=== PATIENT | female | born 1965 | race Caucasian/White ===

== ENCOUNTER 2017-08-28 16:32 | Emergency (ER) | payer BC, MEDICAID ==
[2017-08-28] MEDS ORDERED: LORazepam 1 MG Tab PO ONE (19:02)
[2017-08-28] MEDS ORDERED: Losartan 50 MG Tab PO ONE (19:03)
--- NOTE | 2017-08-28 19:18 | EDM.PDOC ---
ED HPI GENERAL MEDICAL PROBLEM - General Chief Complaint: Abdominal Pain Stated Complaint: ILLNESS Time Seen by Provider: 08/28/17 18:15 Source of Information: Reports: Patient History Limitations: Reports: No Limitations - History of Present Illness INITIAL COMMENTS - FREE TEXT/NARRATIVE: Nixon presents to the emergency room today for complaints of chest pain, headache and increased stress with hypertension for the past 2 days with worsening today. She denies fever, change in vision, shortness of breath, palpitations, SOB with activity or while at rest. Susan reports not sleeping well, increased stress, posterior headache at times, mood swings at times, change in bowel patterns with difficulty of excretion. She was initially briefly seen by Dr. Li and lab work ordered. This provider then took over care. No history of bowel issues or concerns. She did have a uterine ablation about two years ago. Middle Abdomen Pain Score (Numeric/FACES): 6 - Related Data Allergies Allergy/AdvReac Type Severity Reaction Status Date / Time codeine Allergy Severe Anaphylactic Verified 08/28/17 17:01 Shock Penicillins Allergy Severe Anaphylactic Verified 08/28/17 17:01 Shock sulfamethoxazole Allergy Cannot Verified 08/28/17 17:01 [From Bactrim] Remember trimethoprim [From Bactrim] Allergy Cannot Verified 08/28/17 17:01 Remember hydromorphone AdvReac Irritabilit Verified 08/28/17 17:01 y Home Meds: Home Meds Diazepam [Diazepam] 5 mg PO ASDIRECTED PRN 12/11/13 [History] Losartan Potassium 100 mg PO BEDTIME 10/27/14 [History] Cyanocobalamin (Vitamin B-12) [Vitamin B-12] 1,000 mcg SL DAILY 06/27/15 [ History] Multivitamin [Poly-Vitamin] 1 tab PO DAILY 04/02/16 [History] Vitamin B Complex 1 dose PO ASDIRECTED 04/02/16 [History] Past Medical History HEENT History: Reports: Impaired Vision Cardiovascular History: Reports: Hypertension Respiratory History: Reports: Other (See Below) Other Respiratory History: lung nodules Gastrointestinal History: Reports: Cholelithiasis 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: Dysfunctional Uterine Bleeding, Endometrial Ablation, , Spontaneous , Therapeutic Musculoskeletal History: Reports: Arthritis, Back Pain, Chronic Other Musculoskeletal History: right knee Neurological History: Reports: Migraines Psychiatric History: Reports: Anxiety, Depression, Panic Attack, Suicide Attempt Endocrine/Metabolic History: Reports: Obesity/BMI 30+ Other Endocrine/Metabolic History: previous hypothyroidism but corrected now and not on any meds - Infectious Disease History Infectious Disease History: Reports: Hepatitis C - Past Surgical History Cardiovascular Surgical History: Reports: None Respiratory Surgical History: Reports: None GI Surgical History: Reports: Bariatric Procedure, Cholecystectomy, EGD Female Surgical History: Reports: Section, Endometrial Ablation, Tubal Ligation Endocrine Surgical History: Reports: None Dermatological Surgical History: Reports: None Social & Family History - Family History Family Medical History: Noncontributory - Tobacco Use Smoking Status *Q: Never Smoker Second Hand Smoke Exposure: No - Caffeine Use Caffeine Use: Reports: Coffee - Alcohol Use Days Per Week of Alcohol Use: 0 Number of Drinks Per Day: 1 Total Drinks Per Week: 0 - Recreational Drug Use Recreational Drug Use: No ED ROS GENERAL - Review of Systems Review Of Systems: See Below Constitutional: Reports: Chills, Diaphoresis. Denies: Fever, Malaise, Weakness , Fatigue, Night Sweats, Weight Gain HEENT: Reports: No Symptoms Respiratory: Denies: Shortness of Breath, Wheezing, Cough, Sputum, Hemoptysis Cardiovascular: Reports: Chest Pain, Blood Pressure Problem, Other (Elevated blood pressure for the past few days. She reports she has been working with Dr. Kowalski toward good blood pressure control and is not currently taking any medication for hypertension. ). Denies: Claudication, Dyspnea on Exertion, Edema, Lightheadedness, Orthopnea, Palpitations, PND, Syncope Endocrine: Denies: Fatigue, High Glucose, Low Glucose, Polydypsia, Polyuria GI/Abdominal: Reports: Abdominal Pain, Diarrhea, Other (She reports feeling of pain and fullness to the abdomen with radiation to her chest. She also reports she sometimes has to push a bulge in her vagina toward her rectum to help with bowel movement. ). Denies: Anorexia, Black Stool, Bloody Stool, Constipation, Decreased Appetite, Difficulty Swallowing, Distension, Hematemesis, Hematochezia , Melena, Nausea, Stool Incontinence, Vomiting : Denies: Frequency, Hematuria, Pain, Urgency, Urinary Retention Musculoskeletal: Denies: Neck Pain, Shoulder Pain, Arm Pain, Back Pain, Muscle Pain Skin: Denies: Diaphoresis, Dryness, Bruising, Rash, Erythema, Wound Neurological: Reports: Headache. Denies: Confusion, Dizziness, Paresthesia, Seizure, Syncope, Tremors, Trouble Speaking, Difficulty Walking, Weakness, Gait Disturbance Psychiatric: Reports: Agitation, Anxiety, Mood Lability. Denies: Hallucinations , Homicidal Ideation, Suicidal Ideation Hematologic/Lymphatic: Reports: No Symptoms Immunologic: Reports: No Symptoms ED EXAM, GENERAL - Physical Exam Exam: See Below Exam Limited By: No Limitations General Appearance: Alert, Mild Distress Eye Exam: Bilateral Eye: EOMI, Normal Inspection, PERRL Ear Exam: Bilateral Ear: Auricle Normal, Canal Normal, TM normal Nose: Normal Inspection Throat/Mouth: Normal Inspection, Normal Lips, Normal Voice, No Airway Compromise Head: Atraumatic, Normocephalic. No: Facial Swelling, Facial Tenderness, Sinus Tenderness Neck: Normal Inspection, Supple, Non-Tender, Full Range of Motion. No: Lymphadenopathy (R), Lymphadenopathy (L), Tender Midline Respiratory/Chest: No Respiratory Distress, Lungs Clear, Normal Breath Sounds, No Accessory Muscle Use, Chest Non-Tender. No: Crackles, Rales, Rhonchi, Wheezing, Accessory Muscle Use, Retractions Cardiovascular: Normal Peripheral Pulses, Regular Rate, Rhythm, No Edema, No Gallop, No Murmur, No Rub Peripheral Pulses: 2+: Radial (L), Radial (R), Dorsalis Pedis (L), Dorsalis Pedis (R) GI/Abdominal: Normal Bowel Sounds, Soft, Non-Tender, No Organomegaly, No Distention, No Abnormal Bruit, No Mass, Tender, Other (Tenderness through out abdomen. ) Back Exam: Normal Inspection, Full Range of Motion. No: CVA Tenderness (R), CVA Tenderness (L) Extremities: Normal Inspection, Normal Range of Motion, Non-Tender, No Pedal Edema, Normal Capillary Refill Neurological: Alert, Oriented, CN II-XII Intact, Normal Cognition, Normal Gait, Normal Reflexes, No Motor/Sensory Deficits Psychiatric: Anxious, Other (Tearful at times, animated) Skin Exam: Warm, Dry, Intact, Normal Color, No Rash Lymphatic: No Adenopathy Course - Vital Signs Last Recorded V/S: Last Vital Signs Temp 37.2 C 08/28/17 16:55 Pulse 83 08/28/17 20:09 Resp 16 08/28/17 20:09 BP 156/102 H 08/28/17 20:46 Pulse Ox 100 08/28/17 20:09 - Orders/Labs/Meds Orders: Active Orders 24 hr Category Date Time Status Abdomen 2V AP Flat Upright [CR] Stat Exams 08/28/17 19:28 Taken Chest 2V [CR] Stat Exams 08/28/17 19:28 Taken Labs: Laboratory Tests 08/28/17 08/28/17 08/28/17 Range/Units 18:06 18:20 18:20 WBC 4.9 (4.5-11.0) K/uL RBC 4.37 (3.30-5.50) M/uL Hgb 13.5 (12.0-15.0) g/dL Hct 39.7 (36.0-48.0) % MCV 91 (80-98) fL MCH 31 (27-31) pg MCHC 34 (32-36) % Plt Count 287 (150-400) K/uL Neut % (Auto) 32 L (36-66) % Lymph % (Auto) 57 H (24-44) % [place] % (Auto) 9 H (2-6) % Eos % (Auto) 2 (2-4) % Baso % (Auto) 1 (0-1) % Puncture Site Lt.radial ABG pH 7.424 (7.350-7.450) ABG pCO2 36.1 (35.0-42.0) mmHg ABG pO2 91.6 (75.0-100.0) mmHg ABG HCO3 23.2 (22.0-26.0) mmol/L ABG Total CO2 20.4 L (21.0-25.0) mmol/L ABG O2 Saturation 96.6 (95.0-98.0) % ABG O2 Content 18.3 (15.0-23.0) %vol ABG Base Excess -0.3 mm/L ABG Hemoglobin 13.6 (12.0-16.0) g/dL ABG Oxyhemoglobin 95.2 % ABG Carboxyhemoglobin 0.2 (0.0-1.6) % ABG Methemoglobin 1.2 % Oscar Test Passed O2 Delivery Device Room air Sodium 144 (140-148) mmol/L Potassium 4.2 (3.6-5.2) mmol/L Chloride 108 (100-108) mmol/L Carbon Dioxide 28 (21-32) mmol/L Anion Gap 7.9 (5.0-14.0) mmol/L BUN 13 (7-18) mg/dL Creatinine 0.6 (0.6-1.0) mg/dL Est Cr Clr Drug Dosing 82.76 mL/min Estimated GFR (MDRD) > 60 (>60) Glucose 83 (74-106) mg/dL Calcium 9.1 (8.5-10.1) mg/dL Total Bilirubin 0.4 (0.2-1.0) mg/dL AST 35 (15-37) U/L ALT 46 (12-78) U/L Alkaline Phosphatase 76 (46-116) U/L Troponin I < 0.017 (0.000-0.056) ng/mL Total Protein 7.3 (6.4-8.2) g/dL Albumin 4.1 (3.4-5.0) g/dL Globulin 3.2 (2.3-3.5) g/dL Albumin/Globulin Ratio 1.3 (1.2-2.2) Urine Color Urine Appearance Urine pH (4.5-8.0) Ur Specific [place] (1.008-1.030) Urine Protein (NEGATIVE) mg/dL Urine Glucose (UA) (NEGATIVE) mg/dL Urine Ketones (NEGATIVE) mg/dL Urine Occult Blood (NEGATIVE) Urine Nitrite (NEGATIVE) Urine Bilirubin (NEGATIVE) Urine Urobilinogen (NORMAL) mg/dL Ur Leukocyte Esterase (NEGATIVE) Urine RBC (0-5) Urine WBC (0-5) Ur Epithelial Cells Amorphous Sediment Urine Bacteria Urine Mucus 08/28/17 Range/Units 19:03 WBC (4.5-11.0) K/uL RBC (3.30-5.50) M/uL Hgb (12.0-15.0) g/dL Hct (36.0-48.0) % MCV (80-98) fL MCH (27-31) pg MCHC (32-36) % Plt Count (150-400) K/uL Neut % (Auto) (36-66) % Lymph % (Auto) (24-44) % Valley % (Auto) (2-6) % Eos % (Auto) (2-4) % Baso % (Auto) (0-1) % Puncture Site ABG pH (7.350-7.450) ABG pCO2 (35.0-42.0) mmHg ABG pO2 (75.0-100.0) mmHg ABG HCO3 (22.0-26.0) mmol/L ABG Total CO2 (21.0-25.0) mmol/L ABG O2 Saturation (95.0-98.0) % ABG O2 Content (15.0-23.0) %vol ABG Base Excess mm/L ABG Hemoglobin (12.0-16.0) g/dL ABG Oxyhemoglobin % ABG Carboxyhemoglobin (0.0-1.6) % ABG Methemoglobin % Oscar Test O2 Delivery Device Sodium (140-148) mmol/L Potassium (3.6-5.2) mmol/L Chloride (100-108) mmol/L Carbon Dioxide (21-32) mmol/L Anion Gap (5.0-14.0) mmol/L BUN (7-18) mg/dL Creatinine (0.6-1.0) mg/dL Est Cr Clr Drug Dosing mL/min Estimated GFR (MDRD) (>60) Glucose (74-106) mg/dL Calcium (8.5-10.1) mg/dL Total Bilirubin (0.2-1.0) mg/dL AST (15-37) U/L ALT (12-78) U/L Alkaline Phosphatase (46-116) U/L Troponin I (0.000-0.056) ng/mL Total Protein (6.4-8.2) g/dL Albumin (3.4-5.0) g/dL Globulin (2.3-3.5) g/dL Albumin/Globulin Ratio (1.2-2.2) Urine Color Yellow Urine Appearance Clear Urine pH 6.0 (4.5-8.0) Ur Specific [place] 1.015 (1.008-1.030) Urine Protein Negative (NEGATIVE) mg/dL Urine Glucose (UA) Normal (NEGATIVE) mg/dL Urine Ketones Negative (NEGATIVE) mg/dL Urine Occult Blood Negative (NEGATIVE) Urine Nitrite Negative (NEGATIVE) Urine Bilirubin Negative (NEGATIVE) Urine Urobilinogen Normal (NORMAL) mg/dL Ur Leukocyte Esterase Negative (NEGATIVE) Urine RBC Not seen (0-5) Urine WBC 0-5 (0-5) Ur Epithelial Cells Rare Amorphous Sediment Not seen Urine Bacteria Few Urine Mucus Not seen Lab work reviewed. We will complete chest/abdominal x-ray. Meds: Medications Discontinued Medications Generic Name Dose Route Start Last Admin Trade Name Caroline PRN Reason Stop Dose Admin Ibuprofen 800 mg 08/28/17 20:24 08/28/17 20:29 Motrin PO 08/28/17 20:25 800 mg ONETIME ONE Administration Lorazepam 1 mg 08/28/17 19:02 08/28/17 19:10 Ativan PO 08/28/17 19:03 1 mg ONETIME ONE Administration Losartan Potassium 50 mg 08/28/17 19:03 08/28/17 19:11 Cozaar PO 08/28/17 19:04 50 mg ONETIME ONE Administration - Radiology Interpretation Free Text/Narrative:: Chest and abdominal x-rays wet read. No acute findings noted. Radiologist read pending. Patient x-rays and lab work reviewed with her, all her questions were answered. - Re-Assessments/Exams Free Text/Narrative Re-Assessment/Exam: 08/28/17 20: No acute findings. Departure - Departure Time of Disposition: 20:29 Disposition: Home, Self-Care 01 Condition: Good Clinical Impression: Anxiety, Constipation, Hypertension Instructions: Hypertension, [id number] Referrals: Javi Kowalski MD [Primary Care Provider] - Forms: ED Department Discharge Additional Instructions: You have been evaluated and treated in the emergency room tonight for hypertension, anxiety and constipation. Your lab work was negative for cardiac concerns or infection. Trop - negative It is in your best interest to take losartan 50mg PO daily. Use lorazepam/ativan 0.5mg to 1mg by mouth as directed for anxiety. You can take docusate sodium 100mg by mouth once or twice a day as needed for constipation. Drink plenty of water and consider use of prunes, prune juice to help with constipation. If you have not had a bowel movement for 3 days you can take one capful of miralax in 8 oz water once to twice a day as needed. Follow up with Dr. Kowalski this week for a recheck and management of hypertension , anxiety. Also suggest possible menopause, rectocele concerns. Return to the emergency room for any worsening, issues or concerns. - My Orders Last 24 Hours: My Active Orders 08/28/17 19:28 Abdomen 2V AP Flat Upright [CR] Stat Chest 2V [CR] Stat - Assessment/Plan Last 24 Hours: My Active Orders 08/28/17 19:28 Abdomen 2V AP Flat Upright [CR] Stat Chest 2V [CR] Stat Assessment:: hypertension, anxiety and constipation. lab work was negative for cardiac concerns or infection. Trop - negative Plan: Patient evaluated and treated in the emergency room tonight for hypertension, anxiety and constipation. Her lab work was negative for cardiac concerns or infection. Trop - negative It is in her best interest to take losartan 50mg PO daily. Use lorazepam/ativan 0.5mg to 1mg by mouth as directed for anxiety. She can take docusate sodium 100mg by mouth once or twice a day as needed for constipation. Drink plenty of water and consider use of prunes, prune juice to help with constipation. If she has not had a bowel movement for 3 days she can take one capful of miralax in 8 oz water once to twice a day as needed. Follow up with Dr. Kowalski this week for a recheck and management of hypertension , anxiety. Also suggest possible menopause, rectocele concerns. Return to the emergency room for any worsening, issues or concerns.
[2017-08-28] MEDS ORDERED: Ibuprofen 800 MG Tab PO ONE (20:24)
[2017-08-28 20:46] VITALS: BP 156/102
--- NOTE | 2017-08-29 09:46 | CR ---
Abdomen 2V AP Flat Upright FINDINGS: Right upper quadrant clips are consistent with a prior cholecystectomy. There is a moderate amount of stool retention within the right colon. The bowel gas pattern is unremarkable. There is no bowel distention. There are no pathologic air-fluid levels. No free air is seen. No pathologic calci fications are demonstrated. IMPRESSION: 1. Moderate colonic stool. 2. No acute findings.
--- NOTE | 2017-08-29 09:48 | CR ---
Chest 2V FINDINGS: The heart and vascular structures are normal in appearance. No infiltrates or effusions are demonstrated. The skeletal structures are unremarkable. IMPRESSION: Negative exam.
== END 2017-08-28 20:46 | disposition home or self-care (01) ==
LOC: JP.ED 16:32
DX: F41.9 Anxiety disorder, unspecified (principal); K59.00 Constipation, unspecified; I10 Essential (primary) hypertension; F32.9 Major depressive disorder, single episode, unspecified; Z79.899 Other long term (current) drug therapy; Z88.1 Allergy status to other antibiotic agents; Z88.5 Allergy status to narcotic agent; Z88.2 Allergy status to sulfonamides; Z88.0 Allergy status to penicillin; Z88.8 Allergy status to other drugs, medicaments and biological substances
CPT/HCPCS: 36415; 36600; 71046; 74019; 80053; 81001; 82803; 84484; 85025; 99285; A9270

== ENCOUNTER 2017-09-22 18:51 | Emergency (ER) | payer BC ==
[2017-09-22] MEDS ORDERED: Metoclopramide 10 MG/2 ML SDV IVPUSH ONE (19:38)
[2017-09-22] MEDS ORDERED: Lactated Ringers 1,000 ML IV SCH (19:45)
--- NOTE | 2017-09-22 19:45 | EDM.PDOC ---
ED HPI GENERAL MEDICAL PROBLEM - General Chief Complaint: Abdominal Pain Stated Complaint: STOMACH PAINS/SORE THROAT Time Seen by Provider: 09/22/17 19:30 Source of Information: Reports: Patient, Old Records History Limitations: Reports: No Limitations - History of Present Illness INITIAL COMMENTS - FREE TEXT/NARRATIVE: 52 yo female s/p gastric bypass presents with 2 days of diarrhea and onset this morning of epigastric pain and nausea/GERD sx's. Hasn't normally had reflux sx' s since her surgery. Is not aware of a fever. No blood in her stools. No urinary sx's. Has a mild sore throat since the GERD sx's. Onset: Gradual Onset Date: 09/21/17 Duration: Day(s): (1.5 days) Location: Reports: Abdomen Quality: Reports: Burning (in epigastric area.) Severity: Moderate Improves with: Reports: None Worsens with: Reports: None Associated Symptoms: Reports: Nausea/Vomiting (no vomting), Other (diarrhea). 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) epigastric Pain Score (Numeric/FACES): 6 - Related Data Allergies Allergy/AdvReac Type Severity Reaction Status Date / Time codeine Allergy Severe Anaphylactic Verified 09/22/17 19:09 Shock Penicillins Allergy Severe Anaphylactic Verified 09/22/17 19:09 Shock sulfamethoxazole Allergy Cannot Verified 09/22/17 19:09 [From Bactrim] Remember trimethoprim [From Bactrim] Allergy Cannot Verified 09/22/17 19:09 Remember hydromorphone AdvReac Irritabilit Verified 09/22/17 19:09 y Home Meds: Home Meds Diazepam 5 mg PO ASDIRECTED PRN 12/11/13 [History] Losartan Potassium 100 mg PO BEDTIME 10/27/14 [History] Cyanocobalamin (Vitamin B-12) [Vitamin B-12] 1,000 mcg SL DAILY 06/27/15 [ History] Multivitamin [Poly-Vitamin] 1 tab PO DAILY 04/02/16 [History] Vitamin B Complex 1 dose PO ASDIRECTED 04/02/16 [History] PARoxetine HCl [Paroxetine HCl] 30 mg PO DAILY 09/22/17 [History] hydrOXYzine Pamoate [Hydroxyzine Pamoate] 25 mg PO BEDTIME 09/22/17 [History] Past Medical History HEENT History: Reports: Impaired Vision Cardiovascular History: Reports: Hypertension Respiratory History: Reports: Other (See Below) Other Respiratory History: lung nodules Gastrointestinal History: Reports: Cholelithiasis, GERD 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: Dysfunctional Uterine Bleeding, Endometrial Ablation, , Spontaneous , Therapeutic Musculoskeletal History: Reports: Arthritis, Back Pain, Chronic Other Musculoskeletal History: right knee Neurological History: Reports: Concussion, Head Trauma, Migraines Psychiatric History: Reports: Anxiety, Depression, Panic Attack, Psych Hospitalization(s), Suicide Attempt Endocrine/Metabolic History: Reports: Other (See Below) Other Endocrine/Metabolic History: previous hypothyroidism but corrected now and not on any meds Hematologic History: Reports: B12 Deficiency, Folic Acid - Infectious Disease History Infectious Disease History: Reports: Shingles - Past Surgical History Cardiovascular Surgical History: Reports: None Respiratory Surgical History: Reports: None GI Surgical History: Reports: Bariatric Procedure, Cholecystectomy, EGD Female Surgical History: Reports: Section, Endometrial Ablation, Tubal Ligation Endocrine Surgical History: Reports: None Dermatological Surgical History: Reports: None Social & Family History - Family History Family Medical History: Noncontributory - Tobacco Use Smoking Status *Q: Never Smoker Second Hand Smoke Exposure: No - Caffeine Use Caffeine Use: Reports: Coffee - Alcohol Use Days Per Week of Alcohol Use: 0 Number of Drinks Per Day: 1 Total Drinks Per Week: 0 - Recreational Drug Use Recreational Drug Use: No ED ROS GENERAL - Review of Systems Review Of Systems: See Below Constitutional: Reports: No Symptoms HEENT: Reports: No Symptoms Respiratory: Reports: No Symptoms Cardiovascular: Reports: No Symptoms Endocrine: Reports: No Symptoms GI/Abdominal: Reports: Abdominal Pain, Anorexia, Diarrhea, Decreased Appetite, Distension (now resolved, was distended yesterday.), Nausea. Denies: Black Stool, Bloody Stool, Hematemesis, Hematochezia, Melena, Vomiting : Reports: No Symptoms Musculoskeletal: Reports: No Symptoms Skin: Reports: No Symptoms Neurological: Reports: No Symptoms Psychiatric: Reports: No Symptoms ED EXAM, GI/ABD - Physical Exam Exam: See Below Exam Limited By: No Limitations General Appearance: Alert, WD/WN, No Apparent Distress Eyes: Bilateral: Normal Appearance Ears: Normal External Exam, Normal Canal, Hearing Grossly Normal, Normal TMs Nose: Normal Inspection, Normal Mucosa, No Blood Throat/Mouth: Normal Inspection, Normal Lips, Normal Oropharynx, Normal Voice, No Airway Compromise Head: Atraumatic, Normocephalic Neck: Normal Inspection, Supple, Non-Tender Respiratory/Chest: No Respiratory Distress, Lungs Clear, Normal Breath Sounds, No Accessory Muscle Use Cardiovascular: Regular Rate, Rhythm, No Edema GI/Abdominal Exam: Normal Bowel Sounds, Soft, No Distention, Tender (epigastrium ) Back Exam: Normal Inspection. No: CVA Tenderness (R) Extremities: Normal Inspection, Normal Range of Motion, Non-Tender, No Pedal Edema Neurological: Alert, Oriented, CN II-XII Intact, Normal Cognition, No Motor/ Sensory Deficits Psychiatric: Normal Affect, Normal Mood Skin Exam: Warm, Dry, Intact, Normal Color, No Rash Lymphatic: No Adenopathy Course - Vital Signs Text/Narrative:: Feeling much better after Reglan and Maalox, will try giving some oral food/ liquid and see how she feels after that. Will finish her liter of LR also. Tolerated water and crackers without a recurrence of her sx's. Last Recorded V/S: Last Vital Signs Temp 36.5 C 09/22/17 19:15 Pulse 67 09/22/17 19:15 Resp 20 09/22/17 19:15 BP 152/95 H 09/22/17 19:15 Pulse Ox 93 L 09/22/17 19:15 - Orders/Labs/Meds Orders: Active Orders 24 hr Category Date Time Status Lactated Ringers [Ringers, Lactated] 1,000 ml Med 09/22/17 19:45 Active IV ASDIRECTED Medication Orders Lactated Ringer's (Ringers, Lactated) 1,000 mls @ 500 mls/hr IV ASDIRECTED PRIYA Last Admin: 09/22/17 20:17 Dose: 500 mls/hr Labs: Laboratory Tests 09/22/17 09/22/17 Range/Units 19:40 19:40 WBC 7.0 (4.5-11.0) K/uL RBC 4.12 (3.30-5.50) M/uL Hgb 12.6 (12.0-15.0) g/dL Hct 37.6 (36.0-48.0) % MCV 91 (80-98) fL MCH 31 (27-31) pg MCHC 34 (32-36) % Plt Count 262 (150-400) K/uL Sodium 146 (140-148) mmol/L Potassium 4.2 (3.6-5.2) mmol/L Chloride 109 H (100-108) mmol/L Carbon Dioxide 29 (21-32) mmol/L Anion Gap 12.2 (5.0-14.0) mmol/L BUN 13 (7-18) mg/dL Creatinine 0.6 (0.6-1.0) mg/dL Est Cr Clr Drug Dosing 82.76 mL/min Estimated GFR (MDRD) > 60 (>60) Glucose 93 (74-106) mg/dL Calcium 8.2 L (8.5-10.1) mg/dL Total Bilirubin 0.4 (0.2-1.0) mg/dL AST 40 H (15-37) U/L ALT 52 (12-78) U/L Alkaline Phosphatase 71 (46-116) U/L Total Protein 6.6 (6.4-8.2) g/dL Albumin 3.7 (3.4-5.0) g/dL Globulin 2.9 (2.3-3.5) g/dL Albumin/Globulin Ratio 1.3 (1.2-2.2) Lipase 131 (73-393) U/L Meds: Medications Generic Name Dose Route Start Last Admin Trade Name Caroline PRN Reason Stop Dose Admin Lactated Ringer's 1,000 mls @ 500 mls/hr 09/22/17 19:45 09/22/17 20:17 Ringers, Lactated IV 500 mls/hr ASDIRECTED PIRYA Administration Discontinued Medications Generic Name Dose Route Start Last Admin Trade Name Caroline PRN Reason Stop Dose Admin Al Hydroxide/Mg Hydroxide 30 ml 09/22/17 20:05 09/22/17 20:16 Mag-Al Plus PO 09/22/17 20:06 30 ml ONETIME ONE Administration Metoclopramide HCl 10 mg 09/22/17 19:38 09/22/17 20:17 Reglan IVPUSH 09/22/17 19:39 10 mg ONETIME ONE Administration Departure - Departure Time of Disposition: 21:50 Disposition: Home, Self-Care 01 Condition: Good Clinical Impression: Epigastric pain Diarrhea Qualifiers: Diarrhea type: unspecified type Qualified Code(s): R19.7 - Diarrhea, unspecified - Discharge Information Referrals: Javi Kowalski MD [Primary Care Provider] - Forms: ED Department Discharge - My Orders Last 24 Hours: My Active Orders 09/22/17 19:45 Lactated Ringers [Ringers, Lactated] 1,000 ml IV ASDIRECTED - Assessment/Plan Last 24 Hours: My Active Orders 09/22/17 19:45 Lactated Ringers [Ringers, Lactated] 1,000 ml IV ASDIRECTED
[2017-09-22] MEDS ORDERED: Aluminum Hydroxide/Magnesium Hydroxide/Simethicone Susp 30 ML Cup PO ONE (20:05)
[2017-09-22 21:48] VITALS: BP 100/62
== END 2017-09-22 22:04 | disposition home or self-care (01) ==
LOC: JP.ED 18:51
DX: R10.13 Epigastric pain (principal); R19.7 Diarrhea, unspecified; I10 Essential (primary) hypertension; Z88.5 Allergy status to narcotic agent; Z88.0 Allergy status to penicillin; Z88.2 Allergy status to sulfonamides; Z79.899 Other long term (current) drug therapy
CPT/HCPCS: 36415; 80053; 83690; 85027; 99284; A9270; J2765; J7120

== ENCOUNTER 2017-12-01 08:04 | Emergency (ER) | payer BC ==
[2017-12-01] MEDS ORDERED: LORazepam 2 MG/ML SDV IM ONE (08:15)
[2017-12-01 09:44] VITALS: BP 91/57
== END 2017-12-01 08:25 | disposition left against medical advice (07) ==
LOC: JP.ED 08:04
DX: Z53.20 Procedure and treatment not carried out because of patient's decision for unspecified reasons (principal)

== ENCOUNTER 2018-06-14 11:57 | Emergency (ER) | payer SELFPAY ==
[2018-06-14 12:36] VITALS: BP 165/115
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
== END 2018-06-14 12:55 | disposition home or self-care (01) ==
LOC: JP.ED 11:57
DX: F32.9 Major depressive disorder, single episode, unspecified (principal); F41.9 Anxiety disorder, unspecified; I10 Essential (primary) hypertension; Z88.5 Allergy status to narcotic agent; Z88.0 Allergy status to penicillin; Z88.2 Allergy status to sulfonamides; Z79.899 Other long term (current) drug therapy; Z88.1 Allergy status to other antibiotic agents
CPT/HCPCS: 99283; 99284

== ENCOUNTER 2019-03-25 19:14 | Emergency (ER) | payer MEDICAID ==
[2019-03-25 19:18] VITALS: BP 187/138; PULSE 88
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
== END 2019-03-25 19:45 ==
LOC: JP.ED 19:14
DX: S00.03XA Contusion of scalp, initial encounter (principal); F41.9 Anxiety disorder, unspecified; I10 Essential (primary) hypertension; Z88.0 Allergy status to penicillin; Z88.2 Allergy status to sulfonamides; Z88.5 Allergy status to narcotic agent; Z79.899 Other long term (current) drug therapy; Y04.0XXA Assault by unarmed brawl or fight, initial encounter
CPT/HCPCS: 99284

== ENCOUNTER 2019-08-30 05:23 | Emergency (ER) | payer MEDICAID ==
[2019-08-30 05:32] VITALS: BP 157/111; PULSE 78
[2019-08-30] MEDS ORDERED: Acetaminophen 325 MG Tab PO ONE (05:58)
[2019-08-30] MEDS ORDERED: Ketorolac 30 MG/ML SDV IM ONE (05:58)
--- NOTE | 2019-08-30 05:58 | EDM.PDOC ---
ED HPI GENERAL MEDICAL PROBLEM - General Chief Complaint: Back Pain or Injury Stated Complaint: LOWER BACK PAIN Time Seen by Provider: 08/30/19 05:49 Source of Information: Reports: Patient History Limitations: Reports: No Limitations - History of Present Illness INITIAL COMMENTS - FREE TEXT/NARRATIVE: This is a 54-year-old woman with chronic low back pain who presents with concerns of back pain. She reports that she was working at her job at the [employer], she was inside a freezer for a couple hours which she thinks is exacerbating her low back pain symptoms. She was also sitting during this time which sometimes bothers her back as well. She reports a dull pain in her lower back. There is no radiation into the legs. There is no weakness in the extremities. No saddle anesthesia. No incontinence. No fevers or chills. No IV drug use. No trauma. She has had similar pain like this in the past just not for some time. Lower Back Pain Score (Numeric/FACES): 10 - Related Data Allergies Allergy/AdvReac Type Severity Reaction Status Date / Time codeine Allergy Severe Anaphylactic Verified 03/25/19 19:21 Shock Penicillins Allergy Severe Anaphylactic Verified 03/25/19 19:21 Shock sulfamethoxazole Allergy Cannot Verified 03/25/19 19:21 [From Bactrim] Remember trimethoprim [From Bactrim] Allergy Cannot Verified 03/25/19 19:21 Remember fentanyl AdvReac Agitation Verified 08/30/19 05:34 hydromorphone AdvReac Irritabilit Verified 03/25/19 19:21 y Home Meds: Home Meds diazePAM [Diazepam] 5 mg PO ASDIRECTED PRN 12/11/13 [History] Cyanocobalamin (Vitamin B-12) [Vitamin B-12] 1,000 mcg SL DAILY 06/27/15 [ History] Multivitamin [Poly-Vitamin] 1 tab PO DAILY 04/02/16 [History] Vitamin B Complex 1 dose PO ASDIRECTED 04/02/16 [History] risperiDONE 1 tab PO DAILY 06/14/18 [History] Losartan Potassium [Cozaar] 50 mg PO DAILY 03/25/19 [History] Past Medical History HEENT History: Reports: Impaired Vision Cardiovascular History: Reports: Hypertension Respiratory History: Reports: Other (See Below) Other Respiratory History: lung nodules Gastrointestinal History: Reports: Cholelithiasis, GERD Genitourinary History: Reports: None 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 left arm pain Neurological History: Reports: Concussion, Head Trauma, Migraines Psychiatric History: Reports: Anxiety, Depression, Panic Attack, Psych Hospitalization(s), Suicide Attempt Endocrine/Metabolic History: Reports: Other (See Below) Other Endocrine/Metabolic History: previous hypothyroidism but corrected now and not on any meds Hematologic History: Reports: B12 Deficiency, Folic Acid Immunologic History: Reports: None Oncologic (Cancer) History: Reports: None - Infectious Disease History Infectious Disease History: Reports: C-Difficile, Measles - Past Surgical History Head Surgeries/Procedures: Reports: None Cardiovascular Surgical History: Reports: None Respiratory Surgical History: Reports: None GI Surgical History: Reports: Bariatric Procedure, Cholecystectomy, EGD Female Surgical History: Reports: Section, Endometrial Ablation, Tubal Ligation Endocrine Surgical History: Reports: None Musculoskeletal Surgical History: Reports: None Dermatological Surgical History: Reports: None Social & Family History - Family History Family Medical History: Noncontributory - Tobacco Use Smoking Status *Q: Never Smoker - Caffeine Use Caffeine Use: Reports: None - Recreational Drug Use Recreational Drug Use: No ED ROS GENERAL - Review of Systems Review Of Systems: See Below Constitutional: Reports: No Symptoms HEENT: Reports: No Symptoms Respiratory: Reports: No Symptoms Cardiovascular: Reports: No Symptoms Endocrine: Reports: No Symptoms GI/Abdominal: Reports: No Symptoms : Reports: No Symptoms Musculoskeletal: Reports: Back Pain Skin: Reports: No Symptoms Neurological: Reports: No Symptoms Psychiatric: Reports: No Symptoms Hematologic/Lymphatic: Reports: No Symptoms Immunologic: Reports: No Symptoms ED EXAM,LOWER BACK PAIN/INJURY - Physical Exam Exam: See Below Exam Limited By: No Limitations General Appearance: Alert, No Apparent Distress Ears: Normal External Exam Throat/Mouth: Normal Inspection Head: Atraumatic, Normocephalic Neck: Normal Inspection Respiratory/Chest: No Respiratory Distress Cardiovascular: Regular Rate, Rhythm GI/Abdominal: Soft, Non-Tender Back Exam: Normal Inspection, Other (mild low lumber paraspinal tenderness) Extremities: Normal Inspection Neurological: Alert, Normal Mood/Affect, Other (low extremity strength 5/5 and symmetric, stable and fluid gait) Psychiatric: Normal Affect, Normal Mood Skin Exam: Warm, Dry Course - Vital Signs Last Recorded V/S: Last Vital Signs Temp 36.3 C 08/30/19 05:28 Pulse 78 08/30/19 05:28 Resp 18 08/30/19 05:28 BP 157/111 H 08/30/19 05:28 Pulse Ox 99 08/30/19 05:28 - Orders/Labs/Meds Meds: Medications Discontinued Medications Generic Name Dose Route Start Last Admin Trade Name Caroline PRN Reason Stop Dose Admin Acetaminophen 650 mg 08/30/19 05:58 Tylenol PO 08/30/19 05:59 NOW ONE Ketorolac Tromethamine 30 mg 08/30/19 05:58 Toradol IM 08/30/19 05:59 ONETIME ONE - Re-Assessments/Exams Free Text/Narrative Re-Assessment/Exam: 54-year-old presents with acute on chronic low back pain. No red flag symptoms. She has neuro intact. Sounds to been triggered by inactivity/sitting, though she also contributes somewhat to the cold environment in which she works. No role for imaging. Treating with toradol and tylenol Instructed on supportive cares and NSAID use Work note provided PCP follow up prn Discharged 08/30/19 06:07 Departure - Departure Time of Disposition: 06:02 Disposition: Home, Self-Care 01 Clinical Impression: Low back pain Qualifiers: Chronicity: acute Back pain laterality: midline Sciatica presence: without sciatica Qualified Code(s): M54.5 - Low back pain - Discharge Information Instructions: Acute Back Pain, Adult Referrals: Javi Kowalski MD [Primary Care Provider] - Forms: ED Department Discharge Additional Instructions: We did not identify any emergent cause for your symptoms. Please take Tylenol and ibuprofen for your low back pain. You can also apply a hot pad. Please see your primary doctor if you are having persistent difficulties. Sepsis Event Note - Evaluation Sepsis Screening Result: No Definite Risk - Focused Exam Vital Signs: Vital Signs Temp Pulse Resp BP Pulse Ox 08/30/19 05:28 36.3 C 78 18 157/111 H 99 Date Exam was Performed: 08/30/19 Time Exam was Performed: 06:03
== END 2019-08-30 06:18 | disposition home or self-care (01) ==
LOC: JP.ED 05:23
DX: M54.5 Low back pain (principal); I10 Essential (primary) hypertension; M19.90 Unspecified osteoarthritis, unspecified site; F32.9 Major depressive disorder, single episode, unspecified; F41.0 Panic disorder [episodic paroxysmal anxiety]; Z88.5 Allergy status to narcotic agent; Z88.0 Allergy status to penicillin; Z88.2 Allergy status to sulfonamides; Z88.8 Allergy status to other drugs, medicaments and biological substances; Z79.899 Other long term (current) drug therapy
CPT/HCPCS: 96372; 99283; A9270-GY; J1885

== ENCOUNTER 2019-11-03 09:44 | Emergency (ER) | payer BC, MEDICAID | END 2019-11-03 10:57 | disposition left against medical advice (07) | LOC: JP.ED 09:44 | DX: Z53.21 Procedure and treatment not carried out due to patient leaving prior to being seen by health care provider (principal) ==

== ENCOUNTER 2019-12-29 18:34 | Emergency (ER) | payer BC, MEDICAID ==
[2019-12-29 18:49] VITALS: BP 139/95; PULSE 84
[2019-12-29] MEDS ORDERED: hydrOXYzine HCl 25 MG Tab PO ONE (19:30)
--- NOTE | 2019-12-29 19:35 | EDM.PDOC ---
ED HPI GENERAL MEDICAL PROBLEM - General Chief Complaint: Skin Complaint Stated Complaint: ITCHING, POSS REACTION TO MED Time Seen by Provider: 12/29/19 19:10 Source of Information: Reports: Patient, RN Notes Reviewed History Limitations: Reports: No Limitations - History of Present Illness INITIAL COMMENTS - FREE TEXT/NARRATIVE: Nixon presents today for complaints of itching bug bites to her bilateral legs and scalp for the past 24 hours. She reports she is currently taking cephalexin for a bladder infection and has taken three dose of antibiotic. She tamanna fever, chills, no difficulty breathing, SOB, swelling of lips, mouth. She denies any other issues or concerns. back/joints Pain Score (Numeric/FACES): 5 - Related Data Allergies Allergy/AdvReac Type Severity Reaction Status Date / Time codeine Allergy Severe Anaphylactic Verified 12/29/19 18:53 Shock Penicillins Allergy Severe Anaphylactic Verified 12/29/19 18:53 Shock sulfamethoxazole Allergy Cannot Verified 12/29/19 18:53 [From Bactrim] Remember trimethoprim [From Bactrim] Allergy Cannot Verified 12/29/19 18:53 Remember fentanyl AdvReac Agitation Verified 12/29/19 18:53 hydromorphone AdvReac Irritabilit Verified 12/29/19 18:53 y Home Meds: Home Meds diazePAM [Diazepam] 5 mg PO ASDIRECTED PRN 12/11/13 [History] Cyanocobalamin (Vitamin B-12) [Vitamin B-12] 1,000 mcg SL DAILY 06/27/15 [History] Multivitamin [Poly-Vitamin] 1 tab PO DAILY 04/02/16 [History] Vitamin B Complex 1 dose PO ASDIRECTED 04/02/16 [History] risperiDONE 1 tab PO DAILY 06/14/18 [History] Losartan Potassium [Cozaar] 50 mg PO DAILY 03/25/19 [History] Triamcinolone Acetonide [Triamcinolone Acetonide 0.1% Crm] 1 applic TOP BID PRN 12/29/19 [History] cephALEXin [Cephalexin] 1 tab PO BID 12/29/19 [History] Past Medical History HEENT History: Reports: Impaired Vision Cardiovascular History: Reports: Hypertension Respiratory History: Reports: Other (See Below) Other Respiratory History: lung nodules Gastrointestinal History: Reports: Cholelithiasis, GERD Genitourinary History: Reports: None 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 left arm pain Neurological History: Reports: Concussion, Head Trauma, Migraines Psychiatric History: Reports: Anxiety, Depression, Panic Attack, Psych Hospitalization(s), Suicide Attempt Endocrine/Metabolic History: Reports: Other (See Below) Other Endocrine/Metabolic History: previous hypothyroidism but corrected now and not on any meds Hematologic History: Reports: B12 Deficiency, Folic Acid Immunologic History: Reports: None Oncologic (Cancer) History: Reports: None - Infectious Disease History Infectious Disease History: Reports: C-Difficile, Measles - Past Surgical History Head Surgeries/Procedures: Reports: None Cardiovascular Surgical History: Reports: None Respiratory Surgical History: Reports: None GI Surgical History: Reports: Bariatric Procedure, Cholecystectomy, EGD, Other (See Below) Other GI Surgeries/Procedures: abdominoplasty Female Surgical History: Reports: Section, Endometrial Ablation, Tubal Ligation Endocrine Surgical History: Reports: None Musculoskeletal Surgical History: Reports: None Dermatological Surgical History: Reports: None Social & Family History - Family History Family Medical History: Noncontributory - Tobacco Use Smoking Status *Q: Never Smoker - Caffeine Use Caffeine Use: Reports: None - Recreational Drug Use Recreational Drug Use: No ED ROS GENERAL - Review of Systems Review Of Systems: See Below Constitutional: Reports: No Symptoms HEENT: Reports: No Symptoms Respiratory: Reports: No Symptoms Cardiovascular: Reports: No Symptoms Endocrine: Reports: No Symptoms GI/Abdominal: Reports: No Symptoms : Reports: No Symptoms Musculoskeletal: Reports: No Symptoms Skin: Reports: Pruritis, Other (insect bites to bilateral legs and scalp) Neurological: Reports: No Symptoms Psychiatric: Reports: No Symptoms Hematologic/Lymphatic: Reports: No Symptoms Immunologic: Reports: No Symptoms ED EXAM, SKIN/RASH Exam: See Below Exam Limited By: No Limitations General Appearance: Alert, WD/WN, No Apparent Distress, Anxious Ears: Normal External Exam, Normal Canal, Hearing Grossly Normal, Normal TMs Nose: Normal Inspection, Normal Mucosa, No Blood Throat/Mouth: Normal Inspection, Normal Lips, Normal Teeth, Normal Gums, Normal Oropharynx, Normal Voice Head: Atraumatic, Normocephalic Neck: Normal Inspection, Supple, Non-Tender, Full Range of Motion. No: Lymphadenopathy (R), Lymphadenopathy (L) Respiratory/Chest: No Respiratory Distress, Lungs Clear, Normal Breath Sounds, No Accessory Muscle Use, Chest Non-Tender Cardiovascular: Normal Peripheral Pulses, Regular Rate, Rhythm, No Edema, No Gallop, No Murmur, No Rub Peripheral Pulses: 2+: Radial (L), Radial (R), Dorsalis Pedis (L), Dorsalis Pedis (R) Back Exam: Normal Inspection, Full Range of Motion. No: CVA Tenderness (R), CVA Tenderness (L) Extremities: Normal Range of Motion, Non-Tender, No Pedal Edema, Normal Capillary Refill, Other (Multiple insect bites without signs of infection to bilateral thighs, scalp. ) Neurological: Alert, Oriented, CN II-XII Intact, Normal Cognition, Normal Gait, Normal Reflexes, No Motor/Sensory Deficits Psychiatric: Normal Affect, Normal Mood Skin: Warm, Dry, Normal Color, Other (insect bites to bilateral thighs, scalp. No sign of infection, drainage, erythema, fluctuance. ) Location, Skin: Head, Lower Extremity, Right, Lower Extremity, Left Characteristics: Macular, Papular Lymphatic: No Adenopathy Course - Vital Signs Last Recorded V/S: Last Vital Signs Temp 35.5 C L 12/29/19 18:56 Pulse 84 12/29/19 18:56 Resp 16 12/29/19 18:56 BP 139/95 H 12/29/19 18:56 Pulse Ox 99 12/29/19 18:56 - Orders/Labs/Meds Meds: Medications Discontinued Medications Generic Name Dose Route Start Last Admin Trade Name Freq PRN Reason Stop Dose Admin Hydroxyzine HCl 25 mg 12/29/19 19:30 12/29/19 19:45 Atarax PO 12/29/19 19:31 25 mg ONETIME ONE Administration Departure - Departure Time of Disposition: 19:30 Disposition: Home, Self-Care 01 Clinical Impression: Insect bite, Pruritic dermatitis - Discharge Information *PRESCRIPTION DRUG MONITORING PROGRAM REVIEWED*: Not Applicable *COPY OF PRESCRIPTION DRUG MONITORING REPORT IN PATIENT ALEJANDRA: Not Applicable Instructions: Insect Bite, Adult, [id number] Referrals: Javi Kowalski MD [Primary Care Provider] - Forms: ED Department Discharge Additional Instructions: Insect bites, itching Avoid hot showers, take lukewarm shower only as needed Continue use of oatmeal soaks in lukewarm water only as needed Take benadryl 25mg to 50mg (one to two pills) for itching up to three times a day as needed. Do not take with diazepam or risperdone with benadryl. You can buy calamine over the counter to put on areas of itching. Continue current cephalexin for bladder infection as this works well for skin infections also. Take all of the antibiotic as prescribed. Avoid itching/scratching skin as this can cause worsening of rash and skin infections. Drink plenty of water to stay hydrated and to help prevent urinary tract inf ections. Follow up with your primary provider in 7 days if no improvement or for other concerns. For worsening, issues or concerns return to the emergency room. Sepsis Event Note (ED) - Evaluation Sepsis Screening Result: No Definite Risk - Focused Exam Vital Signs: Vital Signs Temp Pulse Resp BP Pulse Ox 12/29/19 18:56 35.5 C L 84 16 139/95 H 99 12/29/19 18:47 35.5 C L 84 16 139/95 H 99 - Assessment/Plan Assessment:: Insect bite, Pruritic dermatitis Plan: Avoid hot showers, take lukewarm shower only as needed Continue use of oatmeal soaks in lukewarm water only as needed Take benadryl 25mg to 50mg (one to two pills) for itching up to three times a day as needed. Do not take with diazepam or risperdone with benadryl. You can buy calamine over the counter to put on areas of itching. Continue current cephalexin for bladder infection as this works well for skin infections also. Take all of the antibiotic as prescribed. Avoid itching/scratching skin as this can cause worsening of rash and skin infections. Follow up with your primary provider in 7 days if no improvement or for other concerns. For worsening, issues or concerns return to the emergency room.
== END 2019-12-29 19:51 | disposition home or self-care (01) ==
LOC: JP.ED 18:34
DX: S80.862A Insect bite (nonvenomous), left lower leg, initial encounter (principal); S80.861A Insect bite (nonvenomous), right lower leg, initial encounter; S00.06XA Insect bite (nonvenomous) of scalp, initial encounter; L30.9 Dermatitis, unspecified; I10 Essential (primary) hypertension; Z88.5 Allergy status to narcotic agent; Z88.0 Allergy status to penicillin; Z88.2 Allergy status to sulfonamides; Z79.899 Other long term (current) drug therapy; W57.XXXA Bitten or stung by nonvenomous insect and other nonvenomous arthropods, initial encounter
CPT/HCPCS: 99282; A9270

== ENCOUNTER 2020-07-13 13:46 | Emergency (ER) | payer BC, MEDICAID ==
[2020-07-13] MEDS ORDERED: risperiDONE 0.5 MG Tab PO ONE (13:49)
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
[2020-07-13] MEDS ORDERED: Lactated Ringers 1,000 ML IV ONE (15:26)
[2020-07-13] MEDS ORDERED: Lactated Ringers 1,000 ML IV SCH (17:15)
[2020-07-14] MEDS ORDERED: OLANZapine 10 MG Vial IM ONE (10:55)
[2020-07-14] MEDS ORDERED: Haloperidol Lactate 5 MG/ML SDV IVPUSH ONE (11:05)
[2020-07-14] MEDS ORDERED: Ketorolac 30 MG/ML SDV IVPUSH ONE (11:07)
[2020-07-14 11:18] VITALS: BP 148/97; PULSE 85
== END 2020-07-14 19:39 | disposition other institution (70) ==
LOC: JP.ED 13:46
DX: F99 Mental disorder, not otherwise specified (principal); F19.10 Other psychoactive substance abuse, uncomplicated; I10 Essential (primary) hypertension; E86.0 Dehydration; Z88.5 Allergy status to narcotic agent; Z88.0 Allergy status to penicillin; Z88.2 Allergy status to sulfonamides; Z88.1 Allergy status to other antibiotic agents; Z88.4 Allergy status to anesthetic agent; Z79.899 Other long term (current) drug therapy; Z20.822 Contact with and (suspected) exposure to COVID-19
CPT/HCPCS: 36415; 80048; 80143; 80179; 80305-QW; 80307; 81001; 81025; 84443; 85027; 96374; 96375; 99285; 99285-25; A9270-GY; J1630; J1885; J7120; U0002

== ENCOUNTER 2020-07-24 15:55 | Emergency (ER) | payer BC, MEDICAID ==
[2020-07-24 16:14] VITALS: BP 155/96; PULSE 94
--- NOTE | 2020-07-24 17:10 | EDM.PDOCBH ---
ED HPI GENERAL MEDICAL PROBLEM - General Chief Complaint: Behavioral/Psych Stated Complaint: EVAL Time Seen by Provider: 07/24/20 16:16 Source of Information: Reports: Patient, Old Records, Police History Limitations: Reports: No Limitations - History of Present Illness INITIAL COMMENTS - FREE TEXT/NARRATIVE: Nixon is a 55-year-old female who is well-known to me presenting for mental health evaluation. Patient reports that her primary provider called law enforcement to do a welfare check on her today. She had made some comments to the law enforcement about not feeling well and taking all her Suboxone and handed over the Suboxone to the law office assistant. The patient was started on Suboxone last Tuesday as a means to curb her methamphetamine cravings. She was also started on Abilify at the same time by her primary provider for similar reason. Patient was seen by me last week with an acute methamphetamine intoxication causing psychosis. She was discharged to go to [place], however, when she left the ER instead of her son taking her to [place], she refused to go to detox and ended up walking home. Since then she has had a number of encounters with her son causing increased agitation. She reports that she has not used since starting the Abilify and Suboxone, however, she feels quite ill after taking the Suboxone. She is currently on Suboxone strip 2 mg daily. She reports that after taking the Suboxone she feels "high, nauseated, and at times vomits". She feels like the Abilify is helping more with the methamphetamine craving than the Suboxone is. When doing the [facility] suicide risk assessment, the patient denies any active suicidal thoughts, she denies any initiation of self-harm, she denies any plan for suicide and denies any homi cidal thoughts. At this time she does not appear to be under the influence of methamphetamine, nor does she appear to have any psychosis. She is able to have an intelligent and thoughtful conversation and has good eye contact. - Related Data Allergies Allergy/AdvReac Type Severity Reaction Status Date / Time codeine Allergy Severe Anaphylactic Verified 07/24/20 16:50 Shock Penicillins Allergy Severe Anaphylactic Verified 07/24/20 16:50 Shock sulfamethoxazole Allergy Cannot Verified 07/24/20 16:50 [From Bactrim] Remember trimethoprim [From Bactrim] Allergy Cannot Verified 07/24/20 16:50 Remember fentanyl AdvReac Agitation Verified 07/24/20 16:50 hydromorphone AdvReac Irritabilit Verified 07/24/20 16:50 y Home Meds: Home Meds Cyanocobalamin (Vitamin B-12) [Vitamin B-12] 2,000 mcg SL DAILY 06/27/15 [History] Multivitamin [Poly-Vitamin] 2 tab PO DAILY 04/02/16 [History] Vitamin B Complex 1 dose PO ASDIRECTED 04/02/16 [History] Albuterol Sulfate [Albuterol Sulfate Hfa] 2 puff IH Q4H PRN 07/14/20 [History] Diclofenac Sodium [Voltaren 1% Gel] 1 applic TOP QID PRN 07/14/20 [History] ARIPiprazole [Abilify] 5 mg PO DAILY 07/24/20 [History] Buprenorphine HCl/Naloxone HCl [Suboxone 4 mg-1 mg Sl Film] 8 each SL DAILY 07/24/20 [History] Past Medical History HEENT History: Reports: Impaired Vision Cardiovascular History: Reports: Hypertension Respiratory History: Reports: Other (See Below) Other Respiratory History: lung nodules Gastrointestinal History: Reports: Cholelithiasis, GERD Genitourinary History: Reports: None 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 left arm pain Neurological History: Reports: Concussion, Head Trauma, Migraines Psychiatric History: Reports: Anxiety, Depression, Panic Attack, Psych Hospitalization(s), Suicide Attempt Endocrine/Metabolic History: Reports: Other (See Below) Other Endocrine/Metabolic History: previous hypothyroidism but corrected now and not on any meds Hematologic History: Reports: B12 Deficiency, Folic Acid Immunologic History: Reports: None Oncologic (Cancer) History: Reports: None - Infectious Disease History Infectious Disease History: Reports: C-Difficile, Measles - Past Surgical History Head Surgeries/Procedures: Reports: None HEENT Surgical History: Reports: None Other HEENT Surgeries/Procedures: lasik surgery Cardiovascular Surgical History: Reports: None Respiratory Surgical History: Reports: None GI Surgical History: Reports: Bariatric Procedure, Cholecystectomy, EGD, Other (See Below) Other GI Surgeries/Procedures: abdominoplasty Female Surgical History: Reports: Section, Endometrial Ablation, Tubal Ligation Endocrine Surgical History: Reports: None Musculoskeletal Surgical History: Reports: None Dermatological Surgical History: Reports: None Social & Family History - Family History Family Medical History: No Pertinent Family History - Caffeine Use Caffeine Use: Reports: None ED ROS GENERAL - Review of Systems Review Of Systems: See Below Constitutional: Reports: No Symptoms HEENT: Reports: No Symptoms Respiratory: Reports: No Symptoms Cardiovascular: Reports: No Symptoms Endocrine: Reports: No Symptoms GI/Abdominal: Reports: Nausea : Reports: No Symptoms Musculoskeletal: Reports: No Symptoms Skin: Reports: No Symptoms Neurological: Reports: Other (Lightheadedness) Psychiatric: Reports: Agitation, Anxiety, Mood Lability ED EXAM, BEHAVIORAL HEALTH - Physical Exam Exam: See Below Exam Limited By: No Limitations General Appearance: Alert, No Apparent Distress, Anxious Eye Exam: Bilateral Eye: EOMI, PERRL Throat/Mouth: Normal Inspection, Normal Lips, Normal Oropharynx, Normal Voice, No Airway Compromise Head: Atraumatic, Normocephalic Neck: Normal Inspection, Supple, Non-Tender, Full Range of Motion Respiratory/Chest: No Respiratory Distress, Lungs Clear, Normal Breath Sounds Cardiovascular: Normal Peripheral Pulses, Regular Rate, Rhythm, No Murmur GI/Abdominal: Normal Bowel Sounds, Soft, Non-Tender Back Exam: Normal Inspection, Full Range of Motion Extremities: Normal Inspection, Normal Range of Motion Neurological: Alert, Normal Mood/Affect, Normal Cognition, No Motor/Sensory Deficits Psychiatric: Alert, Normal Cognition, Oriented, Tearful, Pressured Speech. No: Incoherent, Disoriented, Homicidal Thoughts, Suicidal Plan, Suicidal Thoughts, Tangential Thoughts, Auditory Hallucinations, Visual Hallucinations, Threatening Behavior Skin Exam: Warm, Dry, Intact, Normal color COURSE, BEHAVIORAL HEALTH COMP - Course Vital Signs: Last Vital Signs Temp 36.4 C 07/24/20 16:52 Pulse 94 07/24/20 16:52 Resp 16 07/24/20 16:52 BP 155/96 H 07/24/20 16:52 Pulse Ox 97 07/24/20 16:52 Orders, Labs, Meds: Laboratory Tests 07/24/20 07/24/20 07/24/20 Range/Units 16:17 16:17 16:22 WBC 5.4 (4.5-11.0) K/uL RBC 4.07 (3.30-5.50) M/uL Hgb 12.3 D (12.0-15.0) g/dL Hct 38.5 (36.0-48.0) % MCV 95 (80-98) fL MCH 30 (27-31) pg MCHC 32 (32-36) % Plt Count 328 (150-400) K/uL Neut % (Auto) 53 (36-66) % Lymph % (Auto) 37 (24-44) % [place] % (Auto) 8 H (2-6) % Eos % (Auto) 2 (2-4) % Baso % (Auto) 0 (0-1) % Sodium (140-148) mmol/L Potassium (3.6-5.2) mmol/L Chloride (100-108) mmol/L Carbon Dioxide (21-32) mmol/L Anion Gap (5.0-14.0) mmol/L BUN (7-18) mg/dL Creatinine (0.6-1.0) mg/dL Est Cr Clr Drug Dosing mL/min Estimated GFR (MDRD) (>60) Glucose (74-106) mg/dL Calcium (8.5-10.1) mg/dL Total Bilirubin (0.2-1.0) mg/dL AST (15-37) U/L ALT (12-78) U/L Alkaline Phosphatase (46-116) U/L Total Protein (6.4-8.2) g/dL Albumin (3.4-5.0) g/dL Globulin (2.3-3.5) g/dL Albumin/Globulin Ratio (1.2-2.2) Urine Color Yellow (YELLOW) Urine Appearance Clear (CLEAR) Urine pH 5.5 (5.0-8.0) Ur Specific [place] 1.025 (1.008-1.030) Urine Protein Negative (NEGATIVE) mg/dL Urine Glucose (UA) Negative (NEGATIVE) mg/dL Urine Ketones Negative (NEGATIVE) mg/dL Urine Occult Blood Trace-intact H (NEGATIVE) Urine Nitrite Negative (NEGATIVE) Urine Bilirubin Negative (NEGATIVE) Urine Urobilinogen 0.2 (0.2-1.0) EU/dL Ur Leukocyte Esterase Negative (NEGATIVE) Urine RBC 0-5 (0-5) Urine WBC 0-5 (0-5) Ur Epithelial Cells Few Amorphous Sediment Not seen Urine Bacteria Few Urine Mucus Not seen Salicylates (2.0-20.0) mg/dL Urine Opiates Screen Negative (NEGATIVE) Ur Oxycodone Screen Negative (NEGATIVE) Urine Methadone Screen Negative (NEGATIVE) Ur Propoxyphene Screen Negative (NEGATIVE) Acetaminophen (10.0-30.0) ug/mL Ur Barbiturates Screen Negative (NEGATIVE) Ur Tricyclics Screen Negative (NEGATIVE) Ur Phencyclidine Scrn Negative (NEGATIVE) Ur Amphetamine Screen Negative (NEGATIVE) U Methamphetamines Scrn Negative (NEGATIVE) Urine MDMA Screen Negative (NEGATIVE) U Benzodiazepines Scrn Presumptive positive H (NEGATIVE) U Cocaine Metab Screen Negative (NEGATIVE) U Marijuana (THC) Screen Negative (NEGATIVE) 07/24/20 07/24/20 Range/Units 16:22 16:22 WBC (4.5-11.0) K/uL RBC (3.30-5.50) M/uL Hgb (12.0-15.0) g/dL Hct (36.0-48.0) % MCV (80-98) fL MCH (27-31) pg MCHC (32-36) % Plt Count (150-400) K/uL Neut % (Auto) (36-66) % Lymph % (Auto) (24-44) % [place] % (Auto) (2-6) % Eos % (Auto) (2-4) % Baso % (Auto) (0-1) % Sodium 143 (140-148) mmol/L Potassium 3.7 (3.6-5.2) mmol/L Chloride 106 (100-108) mmol/L Carbon Dioxide 26 (21-32) mmol/L Anion Gap 10.8 (5.0-14.0) mmol/L BUN 14 D (7-18) mg/dL Creatinine 0.7 D (0.6-1.0) mg/dL Est Cr Clr Drug Dosing 71.82 mL/min Estimated GFR (MDRD) > 60 (>60) Glucose 98 (74-106) mg/dL Calcium 8.4 L (8.5-10.1) mg/dL Total Bilirubin 0.2 (0.2-1.0) mg/dL AST 21 (15-37) U/L ALT 33 (12-78) U/L Alkaline Phosphatase 84 (46-116) U/L Total Protein 6.2 L (6.4-8.2) g/dL Albumin 3.3 L (3.4-5.0) g/dL Globulin 2.9 (2.3-3.5) g/dL Albumin/Globulin Ratio 1.1 L (1.2-2.2) Urine Color (YELLOW) Urine Appearance (CLEAR) Urine pH (5.0-8.0) Ur Specific [place] (1.008-1.030) Urine Protein (NEGATIVE) mg/dL Urine Glucose (UA) (NEGATIVE) mg/dL Urine Ketones (NEGATIVE) mg/dL Urine Occult Blood (NEGATIVE) Urine Nitrite (NEGATIVE) Urine Bilirubin (NEGATIVE) Urine Urobilinogen (0.2-1.0) EU/dL Ur Leukocyte Esterase (NEGATIVE) Urine RBC (0-5) Urine WBC (0-5) Ur Epithelial Cells Amorphous Sediment Urine Bacteria Urine Mucus Salicylates 0.7 L (2.0-20.0) mg/dL Urine Opiates Screen (NEGATIVE) Ur Oxycodone Screen (NEGATIVE) Urine Methadone Screen (NEGATIVE) Ur Propoxyphene Screen (NEGATIVE) Acetaminophen 0.0 L (10.0-30.0) ug/mL Ur Barbiturates Screen (NEGATIVE) Ur Tricyclics Screen (NEGATIVE) Ur Phencyclidine Scrn (NEGATIVE) Ur Amphetamine Screen (NEGATIVE) U Methamphetamines Scrn (NEGATIVE) Urine MDMA Screen (NEGATIVE) U Benzodiazepines Scrn (NEGATIVE) U Cocaine Metab Screen (NEGATIVE) U Marijuana (THC) Screen (NEGATIVE) Discharge vs Psych Eval/Treatment:: 07/24/20 17:14 we will check some basic labs including CBC, comprehensive metabolic panel, salicylate and acetaminophen, UA, and urine drug screen. The patient has been experiencing sialorrhea which is likely due to the Abilify. She does not any tire dive dyskinesia symptoms. She is also experiencing nausea and vomiting after taking the Suboxone which is a known side effect. The patient is negative on the [facility] suicide risk assessment therefore, I do not believe that she needs to have a crisis intervention at this time. We have agreed to give the patient her daily quarter dose (2 mg) of Suboxone but retain the remainder here and she may contact her primary care provider tomorrow to discuss whether to discontinue this medication. 07/24/20 17:55 reviewed the labs showing a normal CBC, comprehensive metabolic panel, acetaminophen and salicylate, UA and urine drug screen only showing benzodiazepines. As the patient is not actively suicidal and does not require crisis intervention, I do think she is suitable for discharge home. She is instructed to follow-up with her primary care provider regarding the continued use of the Suboxone. At her insistence we will keep it here locked up and I will be here tomorrow if her primary provider feels that she needs it back. If we do not hear from her the primary provider by tomorrow afternoon we will have the medication destroyed. Departure - Departure Time of Disposition: 17:56 Disposition: Home, Self-Care 01 Condition: Good Clinical Impression: Nausea, Medication intolerance, Labile mood - Discharge Information *PRESCRIPTION DRUG MONITORING PROGRAM REVIEWED*: Yes *COPY OF PRESCRIPTION DRUG MONITORING REPORT IN PATIENT ALEJANDRA: No Instructions: Nausea and Vomiting, Adult, [id number] Referrals: Marycruz Fleming PA-C [Primary Care Provider] - Forms: ED Department Discharge Care Plan Goals: Follow-up with Marycruz in the morning to discuss whether or not to continue the Suboxone. We will keep it locked up here tonight and if she feels that you should restart it, please return to the ED and we will again dispense it to you. Return to the ED if you develop any suicide ideation. Good luck with your sobriety and congratulations on the accomplishments you have made this week. Sepsis Event Note (ED) - Evaluation Sepsis Screening Result: No Definite Risk - Focused Exam Vital Signs: Vital Signs Temp Pulse Resp BP Pulse Ox 07/24/20 16:52 36.4 C 94 16 155/96 H 97 07/24/20 16:13 36.4 C 94 16 155/96 H 97 - Problem List & Annotations (1) Labile mood SNOMED Code(s): 90691036 Code(s): R45.86 - EMOTIONAL LABILITY Status: Acute Priority: High Current Visit: Yes (2) Medication intolerance SNOMED Code(s): 41317296 Code(s): Z78.9 - OTHER SPECIFIED HEALTH STATUS Status: Acute Priority: High Current Visit: Yes (3) Nausea SNOMED Code(s): 535141425 Code(s): R11.0 - NAUSEA Status: Acute Priority: High Current Visit: Yes - Problem List Review Problem List Initiated/Reviewed/Updated: Yes
== END 2020-07-24 18:11 | disposition home or self-care (01) ==
LOC: JP.ED 15:55
DX: F39 Unspecified mood [affective] disorder (principal); R11.0 Nausea; I10 Essential (primary) hypertension; Z88.5 Allergy status to narcotic agent; Z88.0 Allergy status to penicillin; Z88.2 Allergy status to sulfonamides; Z88.1 Allergy status to other antibiotic agents; Z88.4 Allergy status to anesthetic agent; Z79.899 Other long term (current) drug therapy; T43.595A Adverse effect of other antipsychotics and neuroleptics, initial encounter
CPT/HCPCS: 36415; 80053; 80143; 80179; 80305-QW; 81001; 85025; 99283

== ENCOUNTER 2020-08-18 23:00 | Emergency (ER) | payer BC, MEDICAID ==
[2020-08-18 23:10] VITALS: BP 169/114; PULSE 93
[2020-08-18] MEDS ORDERED: Buprenorphine/Naloxone 8-2 MG Tab.SL SL ONE (23:20)
--- NOTE | 2020-08-18 23:27 | EDM.PDOCBH ---
ED HPI GENERAL MEDICAL PROBLEM - General Chief Complaint: Behavioral/Psych Stated Complaint: MEDICAL [facility] Time Seen by Provider: 08/18/20 23:00 Source of Information: Reports: Patient, EMS History Limitations: Reports: No Limitations - History of Present Illness INITIAL COMMENTS - FREE TEXT/NARRATIVE: 55-year-old female who is on regular Suboxone therapy, was due for a dose of Suboxone tonight and could not find her prescription. She found some naloxone that was prescribed to her , so she tried that instead. What followed was an acute anxiety like reaction with diaphoresis, skin sensitivity and tremor. She is now feeling better. - Related Data Allergies Allergy/AdvReac Type Severity Reaction Status Date / Time codeine Allergy Severe Anaphylactic Verified 08/18/20 23:05 Shock Penicillins Allergy Severe Anaphylactic Verified 08/18/20 23:05 Shock sulfamethoxazole Allergy Cannot Verified 08/18/20 23:05 [From Bactrim] Remember trimethoprim [From Bactrim] Allergy Cannot Verified 08/18/20 23:05 Remember fentanyl AdvReac Agitation Verified 08/18/20 23:05 hydromorphone AdvReac Irritabilit Verified 08/18/20 23:05 y Home Meds: Home Meds Vitamin B Complex 1 dose PO ASDIRECTED 04/02/16 [History] Albuterol Sulfate [Albuterol Sulfate Hfa] 2 puff IH Q4H PRN 07/14/20 [History] ARIPiprazole [Abilify] 5 mg PO DAILY 07/24/20 [History] Buprenorphine HCl/Naloxone HCl [Suboxone 4 mg-1 mg Sl Film] 8 mg SL DAILY 07/24/20 [History] Mirtazapine 7.5 mg PO BEDTIME 08/18/20 [History] Past Medical History HEENT History: Reports: Impaired Vision Cardiovascular History: Reports: Hypertension Respiratory History: Reports: Other (See Below) Other Respiratory History: lung nodules Gastrointestinal History: Reports: Cholelithiasis, GERD Genitourinary History: Reports: None 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 left arm pain Neurological History: Reports: Concussion, Head Trauma, Migraines Psychiatric History: Reports: Anxiety, Depression, Panic Attack, Psych Hospitalization(s), Suicide Attempt Endocrine/Metabolic History: Reports: Other (See Below) Other Endocrine/Metabolic History: previous hypothyroidism but corrected now and not on any meds Hematologic History: Reports: B12 Deficiency, Folic Acid Immunologic History: Reports: None Oncologic (Cancer) History: Reports: None - Infectious Disease History Infectious Disease History: Reports: C-Difficile, Measles - Past Surgical History Head Surgeries/Procedures: Reports: None HEENT Surgical History: Reports: None Other HEENT Surgeries/Procedures: lasik surgery Cardiovascular Surgical History: Reports: None Respiratory Surgical History: Reports: None GI Surgical History: Reports: Bariatric Procedure, Cholecystectomy, EGD, Other (See Below) Other GI Surgeries/Procedures: abdominoplasty Female Surgical History: Reports: Section, Endometrial Ablation, Tubal Ligation Endocrine Surgical History: Reports: None Musculoskeletal Surgical History: Reports: None Dermatological Surgical History: Reports: None Social & Family History - Family History Family Medical History: No Pertinent Family History - Tobacco Use Tobacco Use Status *Q: Never Tobacco User - Caffeine Use Caffeine Use: Reports: None - Alcohol Use Date of Last Drink: 07/02/20 - Recreational Drug Use Recreational Drug Use: Yes Drug Use in Last 12 Months: Yes Recreational Drug Type: Reports: Other (see below) Other Recreational Drug Type: "alfredo used everything but I don't know what but nothing since 45 days" ED ROS GENERAL - Review of Systems Review Of Systems: See Below Constitutional: Reports: Chills, Malaise. Denies: Fever HEENT: Denies: Throat Pain, Vision Change Respiratory: Denies: Shortness of Breath Cardiovascular: Reports: Palpitations GI/Abdominal: Reports: Nausea. Denies: Abdominal Pain, Vomiting Musculoskeletal: Reports: Muscle Pain (Generalized muscle soreness everywhere) Skin: Reports: Diaphoresis Neurological: Reports: Dizziness, Tingling, Weakness Psychiatric: Reports: Anxiety ED EXAM, BEHAVIORAL HEALTH - Physical Exam Exam: See Below Exam Limited By: No Limitations General Appearance: Alert, Anxious Eye Exam: Bilateral Eye: Normal Inspection (Good hydration) Head: Atraumatic Respiratory/Chest: No Respiratory Distress, Lungs Clear Cardiovascular: Regular Rate, Rhythm. No: Tachycardia GI/Abdominal: Non-Tender Extremities: Normal Inspection. No: Pedal Edema Neurological: Alert, Oriented x 3 Psychiatric: Restless, Agitated Skin Exam: Warm, Dry COURSE, BEHAVIORAL HEALTH COMP - Course Vital Signs: Last Vital Signs Temp 98.7 F 03/08/21 23:09 Pulse 93 08/18/20 23:09 Resp 20 08/18/20 23:09 BP 169/114 H 08/18/20 23:09 Pulse Ox 97 08/18/20 23:09 Orders, Labs, Meds: Laboratory Tests 08/18/20 08/18/20 08/18/20 Range/Units 00:06 00:06 23:18 WBC 8.5 (4.5-11.0) K/uL RBC 4.25 (3.30-5.50) M/uL Hgb 12.8 (12.0-15.0) g/dL Hct 39.0 (36.0-48.0) % MCV 92 (80-98) fL MCH 30 (27-31) pg MCHC 33 (32-36) % Plt Count 333 (150-400) K/uL Neut % (Auto) 70 H (36-66) % Lymph % (Auto) 21 L (24-44) % [place] % (Auto) 7 H (2-6) % Eos % (Auto) 1 L (2-4) % Baso % (Auto) 0 (0-1) % Sodium 144 (140-148) mmol/L Potassium 3.8 (3.6-5.2) mmol/L Chloride 107 (100-108) mmol/L Carbon Dioxide 25 (21-32) mmol/L Anion Gap 12.2 (5.0-14.0) mmol/L BUN 14 (7-18) mg/dL Creatinine 0.6 (0.6-1.0) mg/dL Est Cr Clr Drug Dosing 79.94 mL/min Estimated GFR (MDRD) > 60 (>60) Glucose 113 H (74-106) mg/dL Calcium 9.0 (8.5-10.1) mg/dL Total Bilirubin 0.3 (0.2-1.0) mg/dL AST 25 (15-37) U/L ALT 25 (12-78) U/L Alkaline Phosphatase 80 (46-116) U/L Total Protein 7.0 (6.4-8.2) g/dL Albumin 3.9 (3.4-5.0) g/dL Globulin 3.1 (2.3-3.5) g/dL Albumin/Globulin Ratio 1.3 (1.2-2.2) Lipase 141 (73-393) U/L Urine Opiates Screen Negative (NEGATIVE) Ur Oxycodone Screen Negative (NEGATIVE) Urine Methadone Screen Negative (NEGATIVE) Ur Propoxyphene Screen Negative (NEGATIVE) Ur Barbiturates Screen Negative (NEGATIVE) Ur Tricyclics Screen Negative (NEGATIVE) Ur Phencyclidine Scrn Negative (NEGATIVE) Ur Amphetamine Screen Negative (NEGATIVE) U Methamphetamines Scrn Negative (NEGATIVE) Urine MDMA Screen Negative (NEGATIVE) U Benzodiazepines Scrn Negative (NEGATIVE) U Cocaine Metab Screen Negative (NEGATIVE) U Marijuana (THC) Screen Negative (NEGATIVE) Medications Discontinued Medications Generic Name Dose Route Start Last Admin Trade Name Freq PRN Reason Stop Dose Admin Buprenorphine/Naloxone 1 tab 08/18/20 23:20 08/18/20 23:28 Buprenorphine-Naloxone 8 Mg-2 Mg SL 08/18/20 23:21 1 tab ONETIME ONE Administration Sodium Chloride 1,000 mls @ 1,000 mls/hr 08/18/20 23:45 08/19/20 00:06 Normal Saline IV 1,000 mls/hr ASDIRECTED PRIYA Administration Lorazepam 1 mg 08/18/20 23:54 08/19/20 00:03 Ativan IVPUSH 08/18/20 23:55 1 mg ONETIME ONE Administration Ondansetron HCl 4 mg 08/18/20 23:54 08/19/20 00:03 Zofran IVPUSH 08/18/20 23:55 4 mg ONETIME ONE Administration Re-Assessment/Re-Exam: Urine drug screen was obtained and the patient was given 1 sublingual Suboxone. Initially the patient was improving, but then 20 minutes off of the Suboxone she became anxious and nauseated, retching with dry heaves. Extremely anxious. An IV was started, CBC CMP and lipase obtained and she was given 4 mg of IV Zofran and 1 mg of IV Ativan. Labs were normal, after the meds patient slept most of the night. Woke up with a headache but otherwise back to baseline. Was discharged Departure - Departure Time of Disposition: 07:45 Disposition: Home, Self-Care 01 Clinical Impression: Medication side effect Nausea & vomiting Qualifiers: Vomiting type: unspecified Vomiting Intractability: non-intractable Qualified Code(s): R11.2 - Nausea with vomiting, unspecified - Discharge Information Instructions: Nausea and Vomiting, Adult, [id number] Referrals: Javi Kowalski MD [Primary Care Provider] - Forms: ED Department Discharge Care Plan Goals: Resume medications only as prescribed. Sepsis Event Note (ED) - Evaluation Sepsis Screening Result: No Definite Risk
[2020-08-18] MEDS ORDERED: Sodium Chloride 0.9% 1,000 ML IV SCH (23:45)
[2020-08-18] MEDS ORDERED: LORazepam 2 MG/ML SDV IVPUSH ONE (23:54)
[2020-08-18] MEDS ORDERED: Ondansetron 4 MG/2 ML SDV IVPUSH ONE (23:54)
== END 2020-08-19 06:39 | disposition home or self-care (01) ==
LOC: JP.ED 23:00
DX: R11.2 Nausea with vomiting, unspecified (principal); T50.7X5A Adverse effect of analeptics and opioid receptor antagonists, initial encounter; I10 Essential (primary) hypertension; Z88.5 Allergy status to narcotic agent; Z88.0 Allergy status to penicillin; Z88.2 Allergy status to sulfonamides; Z88.1 Allergy status to other antibiotic agents; Z88.4 Allergy status to anesthetic agent; Z79.899 Other long term (current) drug therapy
CPT/HCPCS: 36415; 80053; 80305-QW; 83690; 85025; 96374; 96375; 99284; 99284-25; J0574-GY; J2060; J2405; J7030

== ENCOUNTER 2020-09-20 20:02 | Emergency (ER) | payer BC, MEDICAID ==
--- NOTE | 2020-09-20 21:19 | EDM.PDOC ---
ED HPI GENERAL MEDICAL PROBLEM - General Chief Complaint: Genitourinary Problem Stated Complaint: ABD PAIN,HARD TIME URINATING Time Seen by Provider: 09/20/20 20:41 Source of Information: Reports: Patient History Limitations: Reports: No Limitations - History of Present Illness INITIAL COMMENTS - FREE TEXT/NARRATIVE: chief complaint: bladder infection This is a 55 year old female present to the ER with concerns of bladder infection, she reports started to have symptoms 1 week ago but the past two days have been really bad. reports fever, chills, dysuria, pain and frequency. reports has frequent bladder infections. Onset Date: 09/13/20 Duration: Week(s): (one), Getting Worse Location: Reports: Pelvis Quality: Reports: Ache, Burning, Pressure, Same as Previous Episode Severity: Moderate Improves with: Reports: None Worsens with: Reports: None Associated Symptoms: Reports: Fever/Chills, Loss of Appetite, Nausea/Vomiting Treatments CLIENT RELATIONS ASSOCIATE: Reports: Acetaminophen, Home Treatments (OTC Azo urinary tract pain) - Related Data Allergies Allergy/AdvReac Type Severity Reaction Status Date / Time codeine Allergy Severe Anaphylactic Verified 09/20/20 21:38 Shock Penicillins Allergy Severe Anaphylactic Verified 09/20/20 21:38 Shock sulfamethoxazole Allergy Cannot Verified 09/20/20 21:38 [From Bactrim] Remember trimethoprim [From Bactrim] Allergy Cannot Verified 09/20/20 21:38 Remember fentanyl AdvReac Agitation Verified 09/20/20 21:38 hydromorphone AdvReac Irritabilit Verified 09/20/20 21:38 y Home Meds: Home Meds Vitamin B Complex 1 dose PO ASDIRECTED 04/02/16 [History] Albuterol Sulfate [Albuterol Sulfate Hfa] 2 puff IH Q4H PRN 07/14/20 [History] ARIPiprazole [Abilify] 5 mg PO DAILY 07/24/20 [History] Mirtazapine 7.5 mg PO BEDTIME 08/18/20 [History] Past Medical History HEENT History: Reports: Impaired Vision Cardiovascular History: Reports: Hypertension Respiratory History: Reports: Other (See Below) Other Respiratory History: lung nodules Gastrointestinal History: Reports: Cholelithiasis, GERD Genitourinary History: Reports: None 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 left arm pain Neurological History: Reports: Concussion, Head Trauma, Migraines Psychiatric History: Reports: Anxiety, Depression, Panic Attack, Psych Hospitalization(s), Suicide Attempt Endocrine/Metabolic History: Reports: Other (See Below) Other Endocrine/Metabolic History: previous hypothyroidism but corrected now and not on any meds Hematologic History: Reports: B12 Deficiency, Folic Acid Immunologic History: Reports: None Oncologic (Cancer) History: Reports: None - Infectious Disease History Infectious Disease History: Reports: C-Difficile, Measles - Past Surgical History Head Surgeries/Procedures: Reports: None HEENT Surgical History: Reports: None Other HEENT Surgeries/Procedures: lasik surgery Cardiovascular Surgical History: Reports: None Respiratory Surgical History: Reports: None GI Surgical History: Reports: Bariatric Procedure, Cholecystectomy, EGD, Other (See Below) Other GI Surgeries/Procedures: abdominoplasty Female Surgical History: Reports: Section, Endometrial Ablation, Tubal Ligation Endocrine Surgical History: Reports: None Musculoskeletal Surgical History: Reports: None Dermatological Surgical History: Reports: None Social & Family History - Family History Family Medical History: No Pertinent Family History - Caffeine Use Caffeine Use: Reports: None - Living Situation & Occupation Occupation: Employed ED ROS GENERAL - Review of Systems Review Of Systems: See Below Constitutional: Reports: Fever, Chills, Fatigue HEENT: Reports: No Symptoms Respiratory: Reports: No Symptoms Cardiovascular: Reports: No Symptoms Endocrine: Reports: No Symptoms GI/Abdominal: Reports: Decreased Appetite : Reports: Dysuria, Flank Pain, Frequency, Pain, Urgency Musculoskeletal: Reports: No Symptoms Skin: Reports: No Symptoms Neurological: Reports: No Symptoms Psychiatric: Reports: No Symptoms Hematologic/Lymphatic: Reports: No Symptoms Immunologic: Reports: No Symptoms ED EXAM, GI/ABD - Physical Exam Exam: See Below General Appearance: Alert, WD/WN, Mild Distress, Other (tearful) Eyes: Bilateral: Normal Appearance Ears: Normal External Exam Nose: Normal Inspection Throat/Mouth: Normal Inspection Head: Atraumatic, Normocephalic Neck: Normal Inspection, Supple, Non-Tender, Full Range of Motion Respiratory/Chest: No Respiratory Distress, Lungs Clear, Normal Breath Sounds, No Accessory Muscle Use, Chest Non-Tender Cardiovascular: Normal Peripheral Pulses, Regular Rate, Rhythm, No Edema, No Gallop, No JVD, No Murmur, No Rub GI/Abdominal Exam: Normal Bowel Sounds, Soft, No Organomegaly, No Distention, No Abnormal Bruit, No Mass, Pelvis Stable, Tender (tenderness noted over the pelvis) (Female) Exam: Deferred Rectal (Female) Exam: Deferred Back Exam: Normal Inspection, Full Range of Motion, CVA Tenderness (R), CVA Tenderness (L) Extremities: Normal Inspection, Normal Range of Motion, Non-Tender, Normal Capillary Refill, No Pedal Edema Neurological: Alert, Oriented, CN II-XII Intact, Normal Cognition, Normal Gait, Normal Reflexes, No Motor/Sensory Deficits Psychiatric: Anxious, Tearful Skin Exam: Warm, Dry, Intact, Normal Color, No Rash Lymphatic: No Adenopathy Course - Vital Signs Last Recorded V/S: Last Vital Signs Temp 97.5 F 09/20/20 21:31 Pulse 87 09/20/20 21:31 Resp 21 H 09/20/20 21:31 BP 148/98 H 09/20/20 21:31 Pulse Ox 99 09/20/20 21:31 - Orders/Labs/Meds Orders: Active Orders 24 hr Category Date Time Status CULTURE URINE [RM] Stat Lab 09/20/20 20:30 Received [email or web address] [Rocephin] 1 gm Med 09/20/20 21:36 Ordered Lidocaine 1% [Xylocaine-MPF 1%] 2.1 ml IM ONETIME Labs: Laboratory Tests 09/20/20 Range/Units 20:30 Urine Color Yellow (YELLOW) Urine Appearance Clear (CLEAR) Urine pH 5.5 (5.0-8.0) Ur Specific [place] >= 1.030 (1.008-1.030) Urine Protein Negative (NEGATIVE) mg/dL Urine Glucose (UA) Negative (NEGATIVE) mg/dL Urine Ketones Negative (NEGATIVE) mg/dL Urine Occult Blood Trace-intact H (NEGATIVE) Urine Nitrite Negative (NEGATIVE) Urine Bilirubin Negative (NEGATIVE) Urine Urobilinogen 0.2 (0.2-1.0) EU/dL Ur Leukocyte Esterase Trace H (NEGATIVE) Urine RBC 5-10 H (0-5) Urine WBC 10-20 H (0-5) Ur Epithelial Cells Few Amorphous Sediment Not seen Urine Bacteria Many Urine Mucus Few - Re-Assessments/Exams Free Text/Narrative Re-Assessment/Exam: 09/20/20 21:43 Rocephin 1 gram IM, then start oral medication work excuse discussed medication and fluids intake return to ER if symptoms worsen agrees with plan of care. Departure - Departure Time of Disposition: 21:45 Disposition: Home, Self-Care 01 Condition: Good Clinical Impression: UTI, Urinary tract infectious disease - Discharge Information *PRESCRIPTION DRUG MONITORING PROGRAM REVIEWED*: No *COPY OF PRESCRIPTION DRUG MONITORING REPORT IN PATIENT ALEJANDRA: No Instructions: Urinary Tract Infection, Adult, [id number] Referrals: Javi Kowalski MD [Primary Care Provider] - Forms: ED Department Discharge, ED Return to Work/School Form Care Plan Goals: Urinary Tract Infection -take medication as prescribed -Tylenol or Motrin for fever -drink 8 to 10 glasses of water per day -may drink cranberry juice -urine culture pending. Return to ER or Clinic for increased pain, fever, chills, nausea, vomiting, back pain or not improved. Sepsis Event Note (ED) - Focused Exam Vital Signs: Vital Signs Temp Pulse Resp BP Pulse Ox 09/20/20 21:31 97.5 F 87 21 H 148/98 H 99 - Problem List & Annotations (1) UTI, Urinary tract infectious disease SNOMED Code(s): 13315286 Code(s): N39.0 - URINARY TRACT INFECTION, SITE NOT SPECIFIED Status: Acute Priority: High Current Visit: Yes - Problem List Review Problem List Initiated/Reviewed/Updated: Yes - My Orders Last 24 Hours: My Active Orders 09/20/20 20:30 CULTURE URINE [RM] Stat 09/20/20 21:36 [email or web address] [Rocephin] 1 gm Lidocaine 1% [Xylocaine-MPF 1%] 2.1 ml IM ONETIME - Assessment/Plan Last 24 Hours: My Active Orders 09/20/20 20:30 CULTURE URINE [RM] Stat 09/20/20 21:36 [email or web address] [Rocephin] 1 gm Lidocaine 1% [Xylocaine-MPF 1%] 2.1 ml IM ONETIME Plan: Urinary Tract Infection -take medication as prescribed -Tylenol or Motrin for fever -drink 8 to 10 glasses of water per day -may drink cranberry juice -urine culture pending. Return to ER or Clinic for increased pain, fever, chills, nausea, vomiting, back pain or not improved.
[2020-09-20 21:33] VITALS: BP 148/98; PULSE 87
[2020-09-20] MEDS ORDERED: cefTRIAXone 1 GM, Lidocaine 1% 2.1 ML IM ONE ×2 (21:36)
== END 2020-09-20 22:04 | disposition home or self-care (01) ==
LOC: JP.ED 20:02
DX: N39.0 Urinary tract infection, site not specified (principal); Z88.5 Allergy status to narcotic agent; Z88.0 Allergy status to penicillin; Z88.2 Allergy status to sulfonamides; Z88.4 Allergy status to anesthetic agent; Z79.899 Other long term (current) drug therapy
CPT/HCPCS: 81001; 87086; 96372; 99283; J0696

== ENCOUNTER 2023-01-15 15:36 | Emergency (ER) | payer BC, MEDICAID ==
[2023-01-15] MEDS ORDERED: Acetaminophen 500 MG Tab PO ONE (16:28)
[2023-01-15] MEDS ORDERED: hydrALAZINE 25 MG Tab PO ONE (16:30)
[2023-01-15 16:58] VITALS: BP 174/108; PULSE 82
== END 2023-01-15 17:40 | disposition home or self-care (01) ==
LOC: JP.ED 15:36
DX: J02.9 Acute pharyngitis, unspecified (principal); I10 Essential (primary) hypertension; K21.9 Gastro-esophageal reflux disease without esophagitis; Z88.5 Allergy status to narcotic agent; Z88.0 Allergy status to penicillin; Z88.1 Allergy status to other antibiotic agents; Z88.8 Allergy status to other drugs, medicaments and biological substances; Z79.51 Long term (current) use of inhaled steroids; Z79.899 Other long term (current) drug therapy; Z20.822 Contact with and (suspected) exposure to COVID-19
CPT/HCPCS: 87635; 87651; 99283; A9270; U0002

== ENCOUNTER 2024-12-17 12:28 | Emergency (ER) | payer SELFPAY ==
[2024-12-17 13:32] LABS: BASOPHILS ABSOLUTE AUTO 0.03 K/uL (0.00-0.10); BASOPHILS PERCENT AUTO 0.4 % (0.1-1.3); EOSINOPHILS ABSOLUTE AUTO 0.03 K/uL (0.00-0.40); EOSINOPHILS PERCENT AUTO 0.4 % (0.0-5.4); IMMATURE GRAN PERCENT AUTO 0.3 % (0.0-0.7); LYMPHOCYTES ABSOLUTE AUTO 1.34 K/uL (0.8-3.3); LYMPHOCYTES PERCENT AUTO 16.8 % (11.4-47.7); MONOCYTES ABSOLUTE AUTO 0.31 K/uL (0.20-0.90); MONOCYTES PERCENT AUTO 3.9 % (3.3-12.6); NEUTROPHILS ABSOLUTE AUTO 6.25 K/uL (1.0-7.6); NEUTROPHILS PERCENT AUTO 78.2 % (40.0-78.1); PLATELET COUNT,PLT 300 K/uL (130-375); RED BLOOD CELL COUNT 4.68 M/uL (3.77-5.24); WHITE BLOOD CELL COUNT,WBC 8.0 K/uL (3.2-11.0)
[2024-12-17 13:36] LABS: IMMATURE GRAN ABSOLUTE AUTO 0.02 K/uL (0.00-0.23)
[2024-12-17 13:40] LABS: APPEARANCE,URINE CLEAR (CLEAR); GLUCOSE,URINE NEGATIVE (NEGATIVE); OCCULT BLOOD,URINE TRACE-INTACT (NEGATIVE)
[2024-12-17 13:53] LABS: EPITHELIAL CELLS,URINE NOT SEEN
[2024-12-17 13:53] LABS: AMPHETAMINES SCREEN, URINE NEGATIVE (NEGATIVE); METHADONE SCREEN, URINE PRESUMPTIVE POSITIVE (NEGATIVE); METHAMPHETAMINES SCREEN, URINE PRESUMPTIVE POSITIVE (NEGATIVE); OXYCODONE SCREEN,URINE NEGATIVE (NEGATIVE); PROPOXYPHENE SCREEN,URINE NEGATIVE (NEGATIVE); THC SCREEN,URINE 50 NG/ML NEGATIVE (NEGATIVE)
[2024-12-17 13:54] LABS: A/G RATIO 1.1 (1.2-2.2); ALANINE AMINOTRANSFERASE,ALT 32 U/L (12-78); ASPARTATE AMNIOTRANSFERASE,AST 26 U/L (15-37); BILIRUBIN TOTAL 0.5 mg/dL (0.2-1.0); BLOOD UREA NITROGEN,BUN 16 mg/dL (7-18); CARBON DIOXIDE,CO2 26 mmol/L (21-32); CHLORIDE,CL 100 mmol/L (100-108); CREATININE 0.9 mg/dL (0.6-1.0); EST CRCL DRUG DOSING (CG) 53.23 mL/min; ESTIMATED GFR 74 mL/min (>60); GLUCOSE RANDOM 122 mg/dL (74-106); POTASSIUM,K 3.6 mmol/L (3.6-5.2); PROTEIN TOTAL,TP 8.2 g/dL (6.4-8.2); SODIUM,NA 137 mmol/L (140-148)
[2024-12-17] MEDS: LORazepam 2 MG/ML SDV IVPUSH ONE (17:34)
[2024-12-17] MEDS: diphenhydrAMINE 50 MG/ML SDV IM ONE (19:19)
[2024-12-18 11:03] VITALS: BP 152/98; PULSE 77
== END 2024-12-18 18:57 ==
LOC: JP.ED 12:28
DX: R45.851 Suicidal ideations (principal); I10 Essential (primary) hypertension; E03.9 Hypothyroidism, unspecified; Z88.0 Allergy status to penicillin; Z88.1 Allergy status to other antibiotic agents; Z88.5 Allergy status to narcotic agent; Z88.2 Allergy status to sulfonamides; Z88.8 Allergy status to other drugs, medicaments and biological substances; Z79.899 Other long term (current) drug therapy; Z90.49 Acquired absence of other specified parts of digestive tract
CPT/HCPCS: 36415; 80053; 80143; 80305; 80307; 81001; 84443; 85025; 87426; 93005; 96361; 96372; 96374; 99285; A9270; J1200; J1630; J2060; J7030